=== PATIENT | female | born 1980 | race American Indian/Alaskan Native ===

== ENCOUNTER 2021-01-21 20:05 | Emergency (ER) | payer OTHER ==
[2021-01-21 20:39] VITALS: BP 130/54
[2021-01-21 22:59] LABS: Bilirubin,Urine NEG (Negative); Blood,Urine MOD (Negative); Color,Urine Yellow (Yellow); HCG Qualitative,Urine Negative (Negative); Mucus,Urine 3+ /HPF
[2021-01-21] MEDS ORDERED: LIDOCAINE-MPF (1%) 10 MG/1 ML VIAL 5 ML INFILTRATI ONE (23:14)
--- NOTE | 2021-01-21 23:14 | Emergency Department Report ---
ED Female HPI - General Chief complaint: Back Pain/Injury Stated complaint: POSS UTI Source: patient Mode of arrival: Ambulatory Limitations: No Limitations - History of Present Illness Initial comments: Patient is a 40-year-old -[place] female with no past medical history who presents to the ED with complaint of acute onset persistent low back pain, vaginal discharge, vaginal irritation and itching, urinary frequency and urgency for the last 3 weeks, worse in the last 2 days. Patient states that she used [id number] antifungal Monistat suspecting that she may have been having vaginal yeast infection but this did not resolve her symptoms. Patient denies dysuria, vaginal bleeding, chest pain or shortness of breath, fever, chills, sore throat, abdominal pain, dyspareunia, numbness and tingling or weakness of lower extremities bilaterally, nausea and vomiting MD Complaint: vaginal discharge, pelvic pain (Pressure), other (Vaginal itching and low back pain) -: Sudden, week(s) (2) Location: suprapubic, other (Vaginal) Radiation: other (Low back) Severity: moderate Severity scale (0 -10): 5 Quality: dull, crushing Consistency: constant Improves with: none Worsens with: urination Are you Now?: No Associated Symptoms: denies other symptoms, vaginal discharge. denies: vaginal bleeding, abdominal pain, nausea/vomiting, fever/chills, headaches, loss of appetite, dysuria, hematuria, rash, seizure, shortness of breath, syncope, other - Related Data Sexually active: Yes Previous Rx's Medication Instructions Recorded Last Taken Type Doxycycline Hyclate 100 mg PO Q12H #28 capsule 01/22/21 Unknown Rx Fluconazole [Diflucan TAB] 200 mg PO QDAY #2 tablet 01/22/21 Unknown Rx Ibuprofen [Motrin] 800 mg PO Q8HR PRN #30 tablet 01/22/21 Unknown Rx metroNIDAZOLE [Flagyl] 500 mg PO Q12HR #14 tab 01/22/21 Unknown Rx Allergies Allergy/AdvReac Type Severity Reaction Status Date / Time No Known Allergies Allergy Unverified 01/21/21 23:09 ED Review of Systems ROS: Stated complaint: POSS UTI Other details as noted in HPI Constitutional: denies: chills, fever Eyes: denies: eye pain, eye discharge, vision change ENT: denies: ear pain, throat pain Respiratory: denies: cough, shortness of breath, wheezing Cardiovascular: denies: chest pain, palpitations Endocrine: no symptoms reported Gastrointestinal: abdominal pain (Suprapubic pressure). denies: nausea, vomiting, diarrhea Genitourinary: urgency, frequency, discharge. denies: dysuria Musculoskeletal: back pain (Low back pain). denies: joint swelling, arthralgia Skin: denies: rash, lesions Neurological: denies: headache, weakness, paresthesias Psychiatric: denies: anxiety, depression Hematological/Lymphatic: denies: easy bleeding, easy bruising ED Past Medical Hx - Past Medical History Previous Medical History?: No - Surgical History Past Surgical History?: No - Medications Home Medications: Home Medications Medication Instructions Recorded Confirmed Last Taken Type Doxycycline Hyclate 100 mg PO Q12H #28 capsule 01/22/21 Unknown Rx Fluconazole [Diflucan TAB] 200 mg PO QDAY #2 tablet 01/22/21 Unknown Rx Ibuprofen [Motrin] 800 mg PO Q8HR PRN #30 tablet 01/22/21 Unknown Rx metroNIDAZOLE [Flagyl] 500 mg PO Q12HR #14 tab 01/22/21 Unknown Rx ED Physical Exam - General Limitations: No Limitations General appearance: alert, in no apparent distress - Head Head exam: Present: atraumatic, normocephalic, normal inspection - Eye Eye exam: Present: normal appearance, PERRL, EOMI Pupils: Present: normal accommodation - ENT ENT exam: Present: normal exam, normal orophraynx, mucous membranes moist, TM's normal bilaterally, normal external ear exam - Neck Neck exam: Present: normal inspection, full ROM - Respiratory Respiratory exam: Present: normal lung sounds bilaterally. Absent: respiratory distress, wheezes, rales, rhonchi, chest wall tenderness, accessory muscle use, decreased breath sounds - Cardiovascular Cardiovascular Exam: Present: regular rate, normal rhythm, normal heart sounds. Absent: systolic murmur, diastolic murmur, rubs, gallop - GI/Abdominal GI/Abdominal exam: Present: soft, normal bowel sounds. Absent: tenderness, guarding, rigid, hyperactive bowel sounds, hypoactive bowel sounds, organomegaly - Extremities Exam Extremities exam: Present: normal inspection, full ROM, normal capillary refill - Back Exam Back exam: Present: normal inspection, full ROM, tenderness (Palpable mild lumbosacral paraspinal musculoskeletal tenderness), muscle spasm, paraspinal tenderness. Absent: CVA tenderness (R), CVA tenderness (L), vertebral tend erness - Neurological Exam Neurological exam: Present: alert, oriented X3, CN II-XII intact, normal gait, reflexes normal - Psychiatric Psychiatric exam: Present: normal affect, normal mood - Skin Skin exam: Present: warm, dry, intact, normal color. Absent: rash ED Course Vital Signs 01/21/21 20:35 Temperature 98.9 F Pulse Rate 78 Respiratory 18 Rate Blood Pressure 130/54 [Left] O2 Sat by Pulse 98 Oximetry ED Medical Decision Making - Medical Decision Making This is a 40-year-old -[place] female with no past medical history who presents to the ED with complaint of acute onset persistent low back pain, vaginal discharge, vaginal irritation and itching, urinary frequency and urgency for the last 3 weeks, worse in the last 2 days. Patient states that she used [id number] antifungal Monistat suspecting that she may have been having vaginal yeast infection but this did not resolve her symptoms. In the ED, patient is alert and oriented x3 and is not in distress. Urinalysis showed UTI and wet prep test was positive for trichomonas and Gardnerella vaginalis. Patient was treated empirically in the ED for suspected STD, with Rocephin 1 g intramuscular injection. Patient was discharged home on oral antibiotics for UTI as well as for bacterial vaginosis and suspected gonorrhea or chlamydia. Patient was advised to follow-up with [facility] for further STD testing including HIV and syphilis. Patient was also advised to ensure that her sexual partner gets treated for the same before having unprotected sexual intercourse. Patient was advised return to the ED immediately if symptoms get worse. - Differential Diagnosis UTI; gonorrhea; chlamydia; trichomonas; Laila vaginitis; BV Critical care attestation.: If time is entered above; I have spent that time in minutes in the direct care of this critically ill patient, excluding procedure time. ED Disposition Clinical Impression: Acute urinary tract infection, Bacterial vaginosis, Trichomonas vaginalis infection, Spasm of muscle of lower back, STD (sexually transmitted disease) Disposition: HOME / SELF CARE / HOMELESS Is pt being admited?: No Does the pt Need Aspirin: No Condition: Stable Instructions: Urinary Tract Infection, Adult, Mrkd-os-[id number], Bacterial Vaginosis, [id number], Trichomoniasis, Preventing Sexually Transmitted Infections, Adult, Bacterial Vaginosis (ED) Additional Instructions: Lab test results were reviewed and showed acute urinary tract infection, bacterial vaginosis and trichomonas infection which is a sexually transmitted disease. You have been treated in the ED completely for trichomonas infection but you still have to take medication for bacterial vaginosis and urinary tract infection. Ensure that your sexual partner gets treated before having any unprotected sexual intercourse with them. Always observe safe sexual practices. Follow-up with your [employer] [employer] physician in 7 to 10 days for reevaluation or return to the ED immediately if symptoms get worse. Prescriptions: Fluconazole [Diflucan TAB] 200 mg PO QDAY #2 tablet Doxycycline Hyclate 100 mg PO Q12H #28 capsule metroNIDAZOLE [Flagyl] 500 mg PO Q12HR #14 tab Ibuprofen [Motrin] 800 mg PO Q8HR PRN #30 tablet PRN Reason: Pain , Severe (7-10) Referrals: KENNY GROVE MD [Primary Care Provider] - 3-5 Days [facility] [Outside] - 3-5 Days Forms: STI Treatment and Prevention Time of Disposition: 00:04 Print Language: BULGARIAN
[2021-01-21] MEDS ORDERED: metroNIDAZOLE 500 MG TAB PO ONE (23:15)
[2021-01-21] MEDS ORDERED: ONDANSETRON 4 MG ODT TAB PO ONE (23:45)
== END 2021-01-22 01:00 | disposition home or self-care (01) ==
LOC: EDSEX → ED 20:05
DX: N39.0 Urinary tract infection, site not specified (principal); A59.01 Trichomonal vulvovaginitis; N76.0 Acute vaginitis; B96.89 Other specified bacterial agents as the cause of diseases classified elsewhere; M62.830 Muscle spasm of back; A64 Unspecified sexually transmitted disease
CPT/HCPCS: 81001; 81025; 87086; 87210; 96372; 99283; J0696; Q0162

== ENCOUNTER 2021-01-29 12:43 | Emergency (ER) | payer OTHER | END 2021-01-29 13:30 | LOC: ED 12:43 | DX: R42 Dizziness and giddiness (principal); Z53.21 Procedure and treatment not carried out due to patient leaving prior to being seen by health care provider ==